=== PATIENT | male | born 1945 | race Caucasian/White ===

== ENCOUNTER → 2022-07-27 10:58 | Outpatient (CLI) | payer OTHER, SELFPAY ==
--- NOTE | 2022-07-27 | DI.ECHO.S_ITS ---
[facility] +---------+ : : [address] : [address] : : : : [id number] : : : : Phone: [phone]+ Echocardiogram Report + + :Name: AGATHA LERMA Study Date: 07/27/2022 Height: 66 in : :[facility] ReadingLocation: Weight: 164 lb : : Gender: Male BSA: 1.8 m2 : :: 1945 Age: 76 yrs BP: 154/82 mmHg: :Reason For Study: CARDIAC MURMUR : :Ordering Physician: EVERARDO EDDY : :Regina HENRIQUEZ Performed By: Carrie Perez : :Referring: EVERARDO EDDY MD : + + Interpretation Summary The left ventricle is normal in size and wall thickness. Left ventricular systolic function appears normal without focal wall motion abnormalities. The ejection fraction is estimated to be 65-70%. Diastolic parameters suggest probable normal left ventricular diastolic function and normal filling pressures. The right ventricle is normal in size and function. The right ventricular systolic pressure is estimated to be at least 37 mmHg based on an estimated right atrial pressure of 3 mm Hg. The left atrial size is normal. Right atrial size is normal. There is mild mitral regurgitation. The aortic root is normal size. The ascending aorta is mildly enlarged. Procedure: A two-dimensional transthoracic echocardiogram with color flow and Doppler was performed. The study quality was technically adequate. There is no prior echocardiogram noted for this patient. The patient was in sinus rhythm with heart rates between 55-69 bpm during the exam. Left Ventricle: The left ventricle is normal in size and wall thickness. Left ventricular systolic function appears normal without focal wall motion abnormalities. The ejection fraction is estimated to be 65-70%. Diastolic parameters suggest probable normal left ventricular diastolic function and normal filling pressures. Right Ventricle: The right ventricle is normal in size and function. Atria: The left atrial size is normal. Right atrial size is normal. There is no Doppler evidence for an interatrial shunt. Mitral Valve: The mitral valve is normal in structure and function. There is mild mitral regurgitation. Aortic Valve: The aortic valve is trileaflet. The aortic valve opens well. There is mild aortic valve sclerosis. There is no aortic valve stenosis. There is trace aortic regurgitation. Tricuspid Valve: The tricuspid valve is normal in structure and function. There is mild tricuspid regurgitation. The right ventricular systolic pressure is estimated to be at least 37 mmHg based on an estimated right atrial pressure of 3 mm Hg. Pulmonic Valve: The pulmonic valve leaflets are thin and pliable; valve motion is normal. There is mild pulmonic regurgitation. Great Vessels: The aortic root is normal size. The ascending aorta is mildly enlarged. The IVC is of normal diameter and collapses greater than 50% with a sniff. This suggests a low right atrial pressure of 3 mm Hg. Pericardium/ Pleura There is no pericardial effusion. There is no pleural effusion. MMode/2D Measurements & Calculations LVIDd: 5.1 cm LVOT diam: 2.1 cm LVIDs: 3.5 cm Ao root diam: 2.9 cm FS: 31.7 % asc Aorta Diam: 3.5 cm IVSd: 0.78 cm Ao Arch Diam (Prox Trans): 2.8 cm LVPWd: 0.74 cm LV moffett. diameter/BSA (cm/m^2): 2.8 LV sys. diameter/BSA (cm/m^2): 1.9 LA A2 area: 19.6 cm2 RA long axis: 4.8 cm LA A4 area: 16.1 cm2 RA area: 17.4 cm2 LA length (vol): 5.3 cm RA vol: 53.1 ml LA vol: 50.6 ml RA : 28.9 ml/m2 LA vol index: 27.5 ml/m2 IVC diam: 1.6 cm RVD1 (basal): 3.5 cm RVD2 (mid): 2.4 cm TAPSE: 2.3 cm Doppler Measurements & Calculations Ao V2 max: 154.7 cm/sec LVOT Max Won: 105.9 cm/sec Ao V2 mean: 108.9 cm/sec LV V1 max P.5 mmHg Ao max P.6 mmHg LV V1 VTI: 27.9 cm Ao mean P.3 mmHg LALY(I,D): 2.7 cm2 Ao V2 VTI: 37.3 cm LALY(V,D): 2.5 cm2 sev ratio: 0.75 LALY indexed to BSA (cm^2/m^2): 1.5 MV E max won: 111.6 cm/sec TR max won: 292.3 cm/sec MV A max won: 116.0 cm/sec TR max P.2 mmHg MV E/A: 0.96 PA V2 max: 89.8 cm/sec Med Peak E' Won: 9.0 cm/sec PA V2 mean: 68.0 cm/sec E/E' med: 12.5 PA mean P.0 mmHg Lat Peak E' Won: 9.1 cm/sec PA pr(Accel): 48.2 mmHg E/E' lat: 12.3 E/e' average: 12.4 MV dec time: 0.25 sec MVA(VTI): 2.5 cm2 MV V2 mean: 81.6 cm/sec SV(LVOT): 101.2 ml MV mean P.2 mmHg MV V2 VTI: 40.1 cm Reading Physician:02:[id number] PM
== END ==
PROVIDERS: Referring Provider Internal Medicine; Visit Provider Internal Medicine
DX: R01.1 Cardiac murmur, unspecified (principal); I34.0 Nonrheumatic mitral (valve) insufficiency; I51.7 Cardiomegaly
CPT/HCPCS: 93306

== ENCOUNTER → 2023-12-22 12:08 | Outpatient (CLI) | payer OTHER, SELFPAY ==
--- NOTE | 2023-12-22 12:09 | DI.MRI.S_ITS ---
PROCEDURE: MR PELVIS WO CON INDICATIONS: SACROILITIS/LOW BACK PAIN TECHNIQUE: Noncontrast axial and oblique coronal T1 spin echo and STIR through the sacroiliac joints. COMPARISON: None. FINDINGS: Image quality: Excellent. Bones: Mild fibrovascular end plate change at the right aspect of L4-5. The sacrum, and bilateral sacroiliac joints are unremarkable. No subchondral edema, erosion, or significant effusion of either sacroiliac joint. The sacrum is intact. The sacral foramen are grossly intact. Soft tissues: Moderate enlargement of the prostate. Distended bladder, partially visualized. IMPRESSION: 1. Unremarkable sacroiliac joint. 2. Moderate enlargement of prostate. Distended bladder, partially visualized. Dictated by: Dafne Uribe M.D. on 12/22/2023 at 16:04 Approved by: Dafne Uribe M.D. on 12/22/2023 at 16:09
--- NOTE | 2023-12-22 12:19 | DI.MRI.S_ITS ---
PROCEDURE: MR LUMBAR SPINE WO CON INDICATIONS: SACROILITIS/LOW BACK PAIN TECHNIQUE: Noncontrast sagittal T1 spin echo and T2 fast echo, sagittal STIR, and T2 fast spin echo through the lumbar spine. In cases with scoliosis, additional coronal T2 fast spin echo may be performed. COMPARISON: [facility], CT, CT LUMBAR SPINE WITHOUT CONTRAST, 04/18/2023, 18:15. [facility], MR, MR LUMBAR SPINE WITH/WITHOUT CONTRAST, 04/18/2023, 21:27. FINDINGS: Image quality: Excellent Mild retrolisthesis of L1 on L2, L2 on L3. There is a small active Schmorl's node in the inferior endplate of T11, unchanged from prior exam. Mild fibrovascular end plate change at L4-5. Vertebral body height of the lumbar spine is well maintained. The conus terminates at the level of L1-2, and is unremarkable. Right neural foraminal stenosis: Mild at L2-3, L3-4, and L4-5. Left neural foraminal stenosis: Mild at L2-3, and L4-5. Axial images: T11-T12: No central canal stenosis. The T12-L1: Mild bilateral facet arthropathy. No central canal stenosis. L1-2: Mild bilateral facet arthropathy. Mild disc bulge. No central canal stenosis. L2-3: Disc bulge. Mild bilateral facet arthropathy. Mild epidural lipomatosis. Oxmy-ax-yzsesqog central canal stenosis. L3-4: Mild disc bulge. Mild bilateral facet arthropathy. No central canal stenosis. L4-5: Disc bulge, asymmetric to the left. Moderate bilateral facet arthropathy with ligamentum flava hypertrophy. Moderate central canal stenosis. L5-S1: Severe bilateral facet arthropathy. No central canal stenosis. Visualized sacrum is intact. No abdominal aortic aneurysm. Right renal cyst. Scarring in the mid zone of the left kidney. IMPRESSION: 1. Multilevel degenerative changes of the lumbar spine, most pronounced at L4-5, where there is moderate central canal stenosis and mild bilateral neural foraminal stenosis. 2. Small active Schmorl's node in the inferior endplate of T11, unchanged. Dictated by: Dafne Uribe M.D. on 12/22/2023 at 15:49 Approved by: Dafne Uribe M.D. on 12/22/2023 at 16:03
== END ==
PROVIDERS: PCP Internal Medicine; Referring Provider Neurological Surgery; Visit Provider Neurological Surgery
DX: M46.1 Sacroiliitis, not elsewhere classified (principal); M47.816 Spondylosis without myelopathy or radiculopathy, lumbar region; M47.817 Spondylosis without myelopathy or radiculopathy, lumbosacral region; M48.061 Spinal stenosis, lumbar region without neurogenic claudication; M51.44 Schmorl's nodes, thoracic region; N40.0 Benign prostatic hyperplasia without lower urinary tract symptoms; N32.89 Other specified disorders of bladder; M54.50 Low back pain, unspecified
CPT/HCPCS: 72148; 72195